=== PATIENT | male | born 1990 | race Caucasian/White ===

== ENCOUNTER → 2016-07-26 | Outpatient (CLI) | payer OTHER ==
[~2016-07-26] MED LIST: CEPHALEXIN500 M1 PO; PREDNISONE10 MG PO
== END ==
LOC: SUN.DIA 10:55
DX: E10.65 Type 1 diabetes mellitus with hyperglycemia (principal); Z68.25 Body mass index [BMI] 25.0-25.9, adult; Z71.3 Dietary counseling and surveillance
CPT/HCPCS: G0108

== ENCOUNTER → 2016-08-17 | Outpatient (CLI) | payer OTHER | LOC: SUN.DIA 13:08 | DX: E10.65 Type 1 diabetes mellitus with hyperglycemia (principal); Z68.25 Body mass index [BMI] 25.0-25.9, adult; Z71.3 Dietary counseling and surveillance | CPT/HCPCS: G0108 ==